=== PATIENT | female | born 1950 | race Caucasian/White ===

== ENCOUNTER 2016-09-27 15:23 | Day surgery (SDCO) | payer MEDICARE, OTHER ==
[2016-09-27 16:44] LABS: BASOPHIL 0.5 % (0-2); EOSINOPHIL 0.3 % (0-7); HCT 28.5 % (37.0-47.0); HGB 8.8 g/dl (12.5-16.0); LYMPHOCYTE 12.2 % (15-48); MCH 30.7 pg (25.0-31.0); MCHC 30.9 g/dL (32.0-36.0); MCV 99.3 fL (78.0-100.0); MONOCYTE 5.7 % (0-12); NEUTROPHIL 81.3 % (41-80); PLT 235 K/uL (150-400); RBC 2.87 M/uL (4.20-5.40); RDW 21.7 % (11.5-14.0)
[2016-09-27 16:45] LABS: WBC 26.2 K/uL (4.0-10.5)
[2016-09-27 16:54] LABS: ALBUMIN 2.4 g/dL (3.4-4.8); CREATININE 0.5 mg/dL (0.5-1.0); GLOBULIN (CALCULATION) 3.2 g/dL (2.2-4.2); POTASSIUM 3.5 mmol/L (3.5-5.1); TOTAL PROTEIN 5.6 g/dL (6.4-8.3)
[2016-09-27 16:55] LABS: BILIRUBIN - TOTAL 2.2 mg/dL (0.1-1.0)
[2016-09-27 17:08] LABS: BILIRUBIN 2+ mg/dL (NEGATIVE); BLOOD 2+ Ery/uL (NEGATIVE); CLARITY CLEAR (CLEAR); COLOR YELLOW (YELLOW); GLUCOSE (U) TRACE mg/dL (NORMAL); KETONE (U) NEGATIVE (NEGATIVE); LEUKOCYTES NEGATIVE Leu/uL (NEGATIVE); NITRITE NEGATIVE (NEGATIVE); PROTEIN TRACE (LOW) mg/dL (NEGATIVE); SPECIFIC GRAVITY 1.025 (1.001-1.030); UROBILINOGEN >=8.0 mg/dL (0.2-1.0); pH 5.5 (5.0-9.0)
[2016-09-28 06:45] LABS: BASOPHIL 0.2 % (0-2); EOSINOPHIL 0.5 % (0-7); HCT 24.9 % (37.0-47.0); HGB 7.8 g/dl (12.5-16.0); LYMPHOCYTE 7.4 % (15-48); MCH 31.1 pg (25.0-31.0); MCHC 31.3 g/dL (32.0-36.0); MCV 99.2 fL (78.0-100.0); MONOCYTE 4.3 % (0-12); MPV 10.6 fL (6.0-9.5); NEUTROPHIL 87.6 % (41-80); PLT 181 K/uL (150-400); RBC 2.51 M/uL (4.20-5.40); RDW 22.2 % (11.5-14.0); WBC 24.1 K/uL (4.0-10.5)
[2016-09-28 07:01] LABS: CREATININE 0.6 mg/dL (0.5-1.0); POTASSIUM 3.4 mmol/L (3.5-5.1)
[2016-09-28 07:02] LABS: IRON 64 ug/dL (44-196); IRON % SATURATION 43 %SAT (20-50); TIBC (TOTAL IRON + UIBC) 150 U/L (228-428); UIBC 86 ug/dL (112-346)
[2016-09-28 07:21] LABS: FOLIC ACID (SERUM) 12.1 ng/mL (5.6-45.8)
[2016-09-29 04:24] LABS: HCT 29.7 % (37.0-47.0); HGB 9.8 g/dl (12.5-16.0); MCH 31.1 pg (25.0-31.0); MCV 94.3 fL (78.0-100.0); MPV 10.9 fL (6.0-9.5); RBC 3.15 M/uL (4.20-5.40); RDW 19.6 % (11.5-14.0)
[2016-09-29 04:27] LABS: WBC 26.7 K/uL (4.0-10.5)
[2016-09-29 04:42] LABS: CREATININE 0.6 mg/dL (0.5-1.0); POTASSIUM 3.9 mmol/L (3.5-5.1)
[2016-09-29] MEDS ORDERED: MORPHINE S20 MG/1 ML PO (12:29)
[2016-09-29] MEDS ORDERED: ZOFRAN8 MG PO (12:29)
[2016-09-29] MEDS ORDERED: ATIVAN0.5 MG PO (12:30)
[2016-09-29] MEDS ORDERED: DURAGESIC 25MC25 MCG TOP (12:30)
[2016-09-29] MEDS ORDERED: ATROVENT HFA12.9 GM INH (12:39)
[2016-09-29] MEDS ORDERED: NORCO 5-325 TA1 EACH PO (12:39)
[2016-09-29] MEDS ORDERED: PRILOSEC20 MG PO (12:40)
[2016-09-29] MEDS ORDERED: COLACE100 MG PO (12:40)
[2016-09-29] MEDS ORDERED: CERTAGEN1 EACH PO (12:40)
[2016-09-29] MEDS ORDERED: CITRUCEL500 MG PO (12:40)
== END 2016-09-29 16:23 | disposition hospice, home (50) ==
LOC: FER 15:23 → FMS 20:27
PROVIDERS: Internal Medicine; ADMIT Internal Medicine Cardiovascular Disease
DX: A41.9 Sepsis, unspecified organism (principal); R65.20 Severe sepsis without septic shock; R18.8 Other ascites; C34.90 Malignant neoplasm of unspecified part of unspecified bronchus or lung; C78.7 Secondary malignant neoplasm of liver and intrahepatic bile duct; C92.10 Chronic myeloid leukemia, BCR/ABL-positive, not having achieved remission; J44.9 Chronic obstructive pulmonary disease, unspecified; K21.9 Gastro-esophageal reflux disease without esophagitis; Z98.51 Tubal ligation status; Z87.891 Personal history of nicotine dependence; Z84.1 Family history of disorders of kidney and ureter; Z82.49 Family history of ischemic heart disease and other diseases of the circulatory system; Z80.0 Family history of malignant neoplasm of digestive organs; Z79.899 Other long term (current) drug therapy; Z98.890 Other specified postprocedural states
CPT/HCPCS: 36415; 36430; 80048; 80053; 81001; 82607; 82728; 82746; 83540; 83550; 83605; 83690; 85025; 86850; 86900; 86901; 86922; 87040; 87088; 94010; 94640; G0378; J1170; J2270; J2405; J2543; P9016; Q9967